=== PATIENT | female | born 1955 | race Caucasian/White ===

== ENCOUNTER 2025-07-25 08:40 | Outpatient (CLI) | payer MEDICARE, BC, SELFPAY ==
--- OUTSIDE RECORDS SUMMARY | 2025-07-04 08:30 | XMS_ITS | Encounter Summary ---
Author Organization [place] [address] Care Team Providers Care Measurement Supervisor Name Role Phone Dejuan Camarillo DO Primary Care Provider Reason for Referral * Echo (Routine) - Pending Review Specialty Diagnoses / Procedures Referred By Senait stauffer Referred To Contact Radiology Diagnoses Lightheaded Shortness of breath Procedures EC ECHOCARDIOGRAM COMPLETE W DOPPLER AND COLOR FLOW MAPPING Francisco Mims MD [address] [place] [id number] Phone: tel: fax: Referral ID Status Reason Start Date Expiration Date V isits Requested Visits Authorized [id number] Pending Review 07/04/2025 07/04/2027 1 1 Reason for Visit * Reason Comments Annual Exam Anxiety Gastroesophageal Reflux Migraine Encounter Details Date Type Department Care Team (Late st Contact Info) Description 07/04/2025 8:30 AM EDT Office Visit [facility] [address] [place] [address] Francisco Mims MD [address] [place] [address] Lightheaded (Primary Dx); CISCO (generalized anxiety disorder); Heartburn; Migraine without aura and with status migrainosus, not intractable; Shortness of breath; Annual physical exam; Insomnia, persistent; Iron deficiency anemia, unspecified iron deficiency anemia type Social History Tobacco Use Types Packs/Day Years Used Date Smoking Tobacco: Never Smokeless Tobacco: Never Alcohol Use Standard Drinks/Week Comments No 0 (1 standard drink = 0.6 oz pur e alcohol) PHQ-2 Answer Date Recorded PHQ-2 Total Score 0 07/04/2025 Sexually Active Control Partners Comments Not Currently Other-see comments Male None Comments No Sex and Gender Information Value Date Recorded Sex Assigned at Not on file Legal Sex Female 2:13 PM EDT Gender Identity Not on file Sexual Orientation Not on file documented as of this encounter Last Filed Vital Signs Vital Sign Reading Time Taken Comments Blood Pressure 138/72 07/04/2025 8:17 AM EDT Pulse - - Temperature 36.6 C (97.8 F) 07/04/2025 8:17 AM EDT Respiratory Rate - - Oxygen Saturation - - Inhaled Oxygen Concentration - - Weight 74.4 kg (164 lb) 07/04/2025 8:17 AM EDT Height 154.9 cm (5' 1 ) 07/04/2025 8:17 AM EDT Body Mass Index 30.99 07/04/2025 8:17 AM EDT documented in this encounter Functional Status * Cognitive and Functional Status Question Answer Date of Assessment Author Is the person deaf or does he/she have serious difficulty hearing? No 07/04/2025 8:13 AM EDT Marilin Hernandez CCMA Is the person blind or does he/she have serious difficulty seeing even when wearing glasses? No 07/04/2025 8:13 AM EDT Marilin Hernandez CCMA Does this person have seriou s difficulty walking or climbing stairs? No 07/04/2025 8:13 AM EDT Marilin Hernandez CCMA Does this person have difficulty dressing or bathing? No 07/04/2025 8:13 AM EDT Marilin Hernandez CCMA * Is the person deaf or does he/she have serious difficulty hearing? Answer Date of Assessment Author No 07/04/2025 8:13 AM CLEOPATRAT Marilin Hernandez CCMA * Is the person blind or does he/she have serious difficulty seeing even when wearing glasses? Answer Date of Assessment Author No 07/04/2025 8:13 AM Marilin Chaudhari CCMA * Does this person have serious difficulty walking or climbing stairs? Answer Date of Assessment Author No 07/04/2025 8:13 AM Marilin Chaudhari CCMA * Does this person have difficulty dressing or bathing? Answer Date of Assessment Author No 07/04/2025 8:13 AM Marilin Chaudhari CCMA * Because of a physical, mental or emotional condition, does this person have difficulty doing errands alone such as visiting a doctor's office or shopping? Answer Date of Assessment Author No 07/04/2025 8:13 AM Marilin Chaudhari CCMA * PHQ-9 Total Score Answer Date of Assessment Author 0 07/04/2025 8:13 AM Marilin Chaudhari CCMA * Question Answer Date of Assessment Author Little interest or pleasure in doing things 0 07/04/2025 8:13 AM Marilin Chaudhari CCMA Feeling down, depressed, or hopeless 0 07/04/2025 8:13 AM Marilin Chaudhari CCMA PHQ-2 Total Score 0 07/04/2025 8:13 AM Marilin Chaudhari CCMA * PHQ-2 Total Score Answer Date of Assessment Author 0 07/04/2025 8:13 AM Marilin Chaudhari CCMA * Question Answer Date of Assessment Author Feeling Nervous, Anxious, or on Edge 0 07/04/2025 8:13 AM Marilin Chaudhari CCMA Not Being Able to Stop or Control Worrying 0 07/04/2025 8:13 AM Marilin Chaudhari CCMA Worrying too Much About Different Things 0 07/04/2025 8:13 AM Marilin Chaudhari CCMA Trouble Relaxing 0 07/04/2025 8:13 AM Marilin Lantigua CCMA Being so Restless That it is Hard to Sit Still 0 07/04/2025 8:13 AM Marilin Chaudhari CCMA Becoming Easily Annoyed or Irritable 0 07/04/2025 8:13 AM Marilin Chaudhari CCMA Feeling Afraid as if Something Awful Might Happen 0 07/04/2025 8:13 AM Marilin Chaudhari CCMA CISCO-7 Total Score 0 07/04/2025 8:13 AM Marilin Chaudhari CCMA documented as of this encounter Mental Status * Cognitive and Functional Status Question Answer Entry Date Author Because of a physical, menta l or emotional condition, does this person have difficulty doing errands alone such as visiting a doctor's office or shopping? No 07/04/2025 8:13 AM Marilin Chaudhari CCMA Because of a physical, menta l or emotional condition, does this person have serious difficulty concentrating, remembering or making decisions? No 07/04/2025 8:13 AM Marilin Chaudhari CCMA * Because of a physical, mental or emotional condition, does this person have serious difficulty concentrating, remembering or making decisions? Answer Entry Date Author No 07/04/2025 8:13 AM Marilin Chaudhari CCMA documented in this encounter Ordered Prescriptions Prescription Sig Dispense Quantity Refills Last Filled Start Date End Date traZODone (DESYREL) 50 mg Oral TabletIndications: Insomnia, persistent Take 1 Tablet by mouth nightly. 30 Tablet 2 07/04/2025 topiramate (TOPAMAX) 100 mg Oral TabletIndications: Migraine without aura and with status migrainosus, not intractable Take 1 Tablet by mouth nightly. 90 Tablet 3 07/04/2025 omeprazole (PRILOSEC) 20 mg Oral Capsule, Delayed Release(E.C.)Indic ations:Heartburn Take 1 Capsule by mouth daily. 90 Capsule 3 07/04/2025 escitalopram oxalate (LEXAPRO) 20 mg Oral TabletIndications: CISCO (generalized anxiety disorder) Take 1 Tablet by mouth daily. 90 Tablet 3 07/04/2025 documented in this encounter Progress Notes * Francisco Mims MD - 07/04/2025 8:30 AM EDTAssociated Problem(s): CISCO (generalized anxiety disorder) Orders: escitalopram oxalate (LEXAPRO) 20 mg Oral Tablet; Take 1 Tablet by mouth daily. * Francisco Mims MD - 07/04/2025 8:30 AM EDTAssociated Problem(s): Migraine without aura and with status migrainosus, not intractable Orders: topiramate (TOPAMAX) 100 mg Oral Tablet; Take 1 Tablet by mouth nightly. * Francisco Mims MD - 07/04/2025 8:30 AM EDT Vitals: 07/04/25 0817 BP: (!) 138/72 Temp: 97.8 ??F (36.6 ??C) Weight: 164 lb (74.4 kg) Height: 5' 1 (1.549 m) Body mass index is 30.99 kg/m??. SUBJECTIVE: Chief Complaint Patient presents with Annual Exam Anxiety Gastroesophageal Reflux Migraine HPI: Medicare Wellness Assessment: Subsequent Annual Medicare Wellness Assessment. Risk Assessments: Fall Risk Assessment Has the patient had any fall with injury in the past year?: (Patient-Rptd) No Has the patient had 2 or more falls in the past year?: (!) (Patient-Rptd) Yes Is the patient able to sit without assistance?: (Patient-Rptd) Yes Is the patient able to get up without assistance?: (Patient-Rptd) Yes Does the patient have a difficult time ambulating when first getting up?: (Patient-Rptd) No Does the patient have rugs or runners in the home?: (Patient-Rptd) No Does the patient have grab bars in the bathroom?: (!) (Patient-Rptd) No Does the patient have stairs inside or outside of the home?: (!) (Patient-Rptd) Yes Does the patient have handrails for all inside or outside stairs?: (Patient- Rptd) Yes Functional Status Assessment Functional Level: (Patient-Rptd) self care Functional Mobility Assessment: (Patient-Rptd) independent w/o assist device Assessment of transportation needs: (Patient-Rptd) still drives most of the time Functional Activities of Daily Living Limitations: (Patient-Rptd) No issues Bladder: Do you have issues with your bladder, such as urgency or leaking urine?: (Patient-Rptd) Moderate issues Does the patient report issues or concerns regarding hearing?: (Patient-Rptd) No Does the patient wear a seatbelt whenever in a moving vehicle?: (Patient-Rptd) Yes Activities of Daily Living Assistive Device Assessment Assistive Devices: None Home BIPAP/CPAP Frequency: (Patient-Rptd) HS (at night) Home BIPAP/CPAP Supplier: (Patient-Rptd) Edgar gunderson Osteoporosis Screening Assessment Has the patient had a DEXA (Bone Density) scan in the past 2 years?: (Patient- Rptd) Yes Results for orders placed during the hospital encounter of 08/22/21 DX BONE DENSITY AXIAL SKELETON Narrative Indication: The patient is a post-menopausal female under age 65 with clinical risk factors for an osteoporotic fracture that requires a bone density assessment. Study was performed on [employer] 5. Bone Density: Region BMD T-score Z-score AP Spine (L1, L2, L3) 0.901 -1.1 0.6 Femoral Neck (Right) 0.659 -1.7 -0.2 Total Hip (Right) 0.847 -0.8 0.4 World Health Organization criteria for BMD interpretation classify patients as: Normal (T-score at or above -1.0), Low Bone Density (T-score between -1.0 and -2.5), or Osteoporotic (T-score at or below -2.5). T Scores are reported in Postmenopausal women and in men age 50 and older. Z-scores are reported in females prior to menopause and in males younger than age 50. 10-year Fracture Risk(1): Major Osteoporotic Fracture 16% Hip Fracture 1.9% Reported Risk Factors: [place] (), Neck BMD=0.659, BMI=27.7, previous fracture, secondary osteoporosis (1) FRAX(R) Version 3.08. Fracture probability calculated for an untreated patient. Fracture probability may be lower if the patient has received treatment. Previous Exams: Region Date Age BMD T-score BMD Change AP Spine(L1, L2, L3) 08/22/2021 66 0.901 -1.1 -4.0%* 12/24/2018 63 0.938 -0.7 Total Hip(Right) 08/22/2021 66 0.847 -0.8 1.0% 12/24/2018 63 0.839 -0.8 *Denotes significance at 95% confidence level, LSC for AP Spine = 0.032g/cm2, LSC for Total Hip = 0.024 g/cm2, LSC for Distal 1/3 Radius = 0.026 g/cm2, site specific LSC for AP Spine = 0.032 g/cm2, site specific LSC for Total Hip = 0.022 g/cm2 BMD is shown in g/cm2 and BMD Change indicates change vs previous BMD Clinical Information Provided by Patient: Has had a low trauma fracture. Has secondary osteoporosis. Has used or is currently using the following medications: Calcium, Vitamin D, Anticonvulsant Has had or currently has the following medical conditions: Back pain, Hip pain, Depression Patient maximum height was 62. Menopause Age: 52 Patient is postmenopausal Interpretation: Bone mineral density is in the low bone density range. A minimum of two years may be required between bone density studies due to inherent testing precision limitations. Intervals between BMD testing should be determined according to each patient's clinical status: typically one year after initiation or change of therapy is appropriate, with longer intervals once therapeutic effect is established. The spine bone mineral density is significantly decreased from the last exam. The spine portion of the study is limited by discordant vertebra. Following ISCD guidelines vertebra with more than 1.0 T-score difference between the vertebra and the adjacent vertebra have been deleted. The right hip bone mineral density is not significantly changed since the last exam. Patient's FRAX score indicates that the patient is at no increased risk for a fragility fracture in the next 10 years. Patient's FRAX score is included in the body of this report. Reported by: Thania Rose PA-C, [facility] on 08/23/2021 8:50:00 AM. Abnormal Pains Assessment Excluding what you would consider normal aches and pains for your age and medical condition, do youhave any unusual or worrisome pains?: (!) (Patient- Rptd) Yes Opiate Screening Are you currently on opiate or narcotic medications?: (Patient-Rptd) No PHQ Depression Screening Results Little interest or pleasure in doing things: 0 Feeling down, depressed, or hopeless: 0 PHQ-2 Total Score: 0 PHQ-9 Total Score: 0 Advanced Directive Evaluation Does the patient have an Advance Directive?: (!) (Patient-Rptd) No Advance Care Planning Guide Given?: Yes (For Dementia Screening below can use either AD-8 or Mini Cog. Doesn't require both.) AD-8 Dementia Screening tool results Problems with judgement: (Patient-Rptd) 0 Less interest in hobbies/activities: (Patient-Rptd) 0 Repeats the same things over and over: (Patient-Rptd) 0 Trouble learning how to use a tool, appliance or gadget: (Patient-Rptd) 0 Forgets correct month or year: (Patient-Rptd) 0 Trouble handling complicated financial affairs: (Patient-Rptd) 0 Trouble remembering appointments: (Patient-Rptd) 0 Daily problems with thinking and/or memory: (Patient-Rptd) 0 Total AD8 score:: (Patient-Rptd) 0 Mini Cog Dementia Screening tool results Welcome to Medicare Vision Screening Eye Exam : Not applicable/required for Subsequent AWV, only required for Welcome to Medicare Visit Patient Instructions AWV findings and Plan of Care: Recommendations as part of the Personal Plan of Care based on risk screening assessments are: Fall Risk Assessment: Fall Risk Assessment: negative - re-assess in 1 year Functional Status/Social Determinates of Health: stable, no issues, re-assess in 1 year Depression Screening: negative - re-assess in 1 year Dementia Screening: negative - recommend re-assess in 1 year Vaccinations: up to date Exercise/Activity: recommended continuing current Recommended follow up annually for Medicare Annual Wellness Visit. Good preventative health care is important in reducing morbidity and mortality. I recommend exercise regularly as tolerated focusing on strength and balance. I recommend a balanced diet focusing on fruits, veggies, and lean meats. I recommend avoiding having rugs, runners, or other loose trip hazards in the home as these increase fall risk. I recommend installing grab bars in the bathrooms close to toilets, in tubs, and in showers as these are common areas for falls when transitioning from wet surfaces to dry surfaces, or visa versa. This is also an area of the home that is high risk for falls at night. I encourage having an Advanced Directives. This is something we recommend you have on file at home,as well as something that we should have on file in our records. If we don't have a copy of your current Advanced Directive, please bring a copy to your next visit. If you have a power of [facility], we should also have a copy on file. I encourage candid discussion with your family on your wishes in the event that you are incapacitated and unable to participate in direct medical decision making. It is important to stay up to date on recommended vaccinations, please see the health maintenance topics due below and if we have not completed one of those topics today, please consider completing as part of your wellness plan this year. Below are other health maintenance topics that are recommended to be closed at your earliest opportunity. You may notice that some of these were addressed in the office today and will show as resolved in your [employer] account soon. Health Maintenance Due Topic Date Due Hepatitis C Screening Never done Pneumococcal Vaccine 50+ (1 of - PCV) Never done COVID-19 Vaccine (2023- season) 2024 Wellness Exam Medicare 01/13/2025 As part of today's visit the components of the Medicare wellness assessment were completed. These components included reviewing the information available in the risk screening questionnaire that was administered by ancillary staff either today or prior to today's visit (pre-visit planning) and recorded in the Medicare Wellness Assessment Flowsheet in the EMR. I have reviewed the data in regards to fall risk, activities of daily living/functional status, depression screening, dementia screening,and outstanding Health Maintenance topics and edited where necessary. The staff has reviewed and updated the past medical history, social history, family history, allergies, medications, and care team information during the standard rooming process. I have also reviewed this data as part of today'svisit. Below are the findings, recommendations, and Personal Plan of Care. The patient received a copy of their Personal Plan of Care including health maintenance topics thatare recommended to be completed and this can be noted in the after visit summary. The AVS is provided to the patient digitally through their MyChart account or with a paper copy if the patient doesn't have an active MyChart Account. A copy of today's progress note with recommendations below is alsoavailable electronically for patients with an active [facility] account per the Federal Cures Act. TheAVS also contains additional patient education if appropriate on topics common to wellness and their plan of care. History Reviewed: No results found. No results found for this visit on 07/04/25. Patient Active Problem List Diagnosis CISCO (generalized anxiety disorder) Arthritis Snoring ARELI (obstructive sleep apnea) Poor sleep hygiene Restless legs syndrome (RLS) Osteopenia Mixed incontinence urge and stress Migraine without aura and with status migrainosus, not intractable Stress incontinence Iron deficiency anemia Past Medical History: Diagnosis Date Anxiety Arthritis Depression Difficulty sleeping awakens alot at night. GERD (gastroesophageal reflux disease) Headache migraines. Motion sickness Poor sleep hygiene 01/11/2019 Post-operative nausea and vomiting Sleep apnea Bipap Snoring Ulcer stomach ulces in her early 20;s. Urinary incontinence Urinary tract infection 11/28/17 last UTI 1-2 years ago. Past Surgical History: Procedure Laterality Date BLADDER SURGERY surgery for incontinence-states something was put around bladder as an Outpatient but it wasn't a sling or mesh. CARPAL TUNNEL RELEASE Right ENDOMETRIAL ABLATION HAND SURGERY Bilateral trigger thumb. KNEE ARTHROSCOPY Left 03/19/2024 LEFT KNEE ARTHROSCOPY DEBRIDEMENT, MEDIAL MENISCECTOMY; Surgeon: Mazin Roblero MD; Location: [facility]; Service: Orthopedics KNEE ARTHROSCOPY Left 03/19/2024 Surgeon: Mazin Roblero MD; Location: [facility]; Service: Orthopedics TONSILLECTOMY and adenoidectomy. No Known Allergies Current Outpatient Medications on File Prior to Visit Medication Sig Dispense Refill MAGNESIUM ORAL Take by mouth daily. No current facility-administered medications on file prior to visit. Social History Socioeconomic History Marital status: Spouse name: None Number of children: None Years of education: None Highest education level: None Tobacco Use Smoking status: Never Smokeless tobacco: Never Vaping Use Vaping status: Never Used Substance and Sexual Activity Alcohol use: No Drug use: Never Sexual activity: Not Currently Partners: Male control/protection: Other-see comments Comment: None Social Drivers of Health Received from [facility] Family and Community Support Received from [facility] Abuse Screen Received from [facility] Housing Stability Family History Problem Relation Age of Onset Cancer Mother lung cancer. Other Father Arthritis , Arthritis Father Anesth Problems Neg Hx Immunization History Administered Date(s) Administered Influenza Vaccine Quadrivalent 10/13/2018, 09/06/2019 Influenza Vaccine, Unspecified Formulation 09/10/2016 Influenza Virus Vaccine Quadrivalant, Flublok 09/15/2020 Moderna SARS-CoV-2 Booster Vaccine 18+ Yrs (Light Blue Border) 10/22/2021 Moderna SARS-CoV-2 Vaccine 12+ Yrs (Light blue border) 02/21/2021, 03/26/2021 Tdap 03/01/2011, 10/23/2022 Zoster 06/09/2017 Zoster Recombinant 10/23/2022, 02/07/2023 Health Maintenance Topic Date Due Hepatitis C Screening Never done Pneumococcal Vaccine 50+ (1 of 1 - PCV) Never done COVID-19 Vaccine (4 - season) 2024 Wellness Exam Medicare 01/13/2025 Influenza Vaccine (1) 07/25/2025 Breast Cancer Screening 05/17/2027 DTaP/TDaP/Td (3 - Td or Tdap) 10/23/2032 Colon Cancer Screening 11/03/2034 Bone Density Screening Completed Zoster Completed Meningococcal B Vaccine Aged Out Hepatitis B Vaccine Aged Out Patient Care Team: Dejuan Camarillo DO as PCP - General (Family Medicine) Additional issues addressed today: Anxiety: stable GERD: Following up for GERD. Requires medication for symptom control daily. Feels that symptoms areadequately controlled with current treatment. She does modify diet to avoid symptoms. Lightheaded this summer, sweating, weakness. Not excessive exertion. 3 episodes lately, two outside, one inside. Shortness of breath at times. A few months of difficulty falling asleep, on BiPap. More stress at night. Review of Systems Constitutional: Negative for fever. Eyes: Negative for visual disturbance. Respiratory: Negative for cough. Cardiovascular: Negative for chest pain. Gastrointestinal: Negative for abdominal pain, constipation and diarrhea. Genitourinary: Negative for difficulty urinating. Musculoskeletal: Negative for joint swelling. Skin: Negative for rash. Neurological: Positive for light-headedness. Negative for dizziness and headaches. OBJECTIVE: Physical Exam Vitals reviewed. Constitutional: General: She is not in acute distress. Appearance: Normal appearance. She is well-developed. She is not ill-appearing. HENT: Head: Normocephalic and atraumatic. Right Ear: Tympanic membrane is not erythematous or bulging. Left Ear: Tympanic membrane is not erythematous or bulging. Eyes: General: Right eye: No discharge. Left eye: No discharge. Conjunctiva/sclera: Conjunctivae normal. Cardiovascular: Rate and Rhythm: Normal rate and regular rhythm. Heart sounds: Normal heart sounds. Pulmonary: Effort: Pulmonary effort is normal. Breath sounds: Normal breath sounds. Abdominal: Palpations: Abdomen is soft. Musculoskeletal: General: Normal range of motion. Skin: General: Skin is warm. Findings: No rash. Neurological: Mental Status: She is alert. Psychiatric: Mood and Affect: Mood normal. Thought Content: Thought content normal. Assessment & Plan CISCO (generalized anxiety disorder) Orders: escitalopram oxalate (LEXAPRO) 20 mg Oral Tablet; Take 1 Tablet by mouth daily. Heartburn Orders: omeprazole (PRILOSEC) 20 mg Oral Capsule, Delayed Release(E.C.); Take 1 Capsule by mouth daily. Migraine without aura and with status migrainosus, not intractable Orders: topiramate (TOPAMAX) 100 mg Oral Tablet; Take 1 Tablet by mouth nightly. Lightheaded Orders: CBC WITH DIFF; Future COMPREHENSIVE METABOLIC PANEL; Future EC ECHOCARDIOGRAM COMPLETE W DOPPLER AND COLOR FLOW MAPPING; Future Shortness of breath Orders: EC ECHOCARDIOGRAM COMPLETE W DOPPLER AND COLOR FLOW MAPPING; Future Annual physical exam Orders: CBC WITH DIFF; Future COMPREHENSIVE METABOLIC PANEL; Future LIPID SCREEN; Future TSH REFLEX TO FT4; Future Insomnia, persistent Orders: traZODone (DESYREL) 50 mg Oral Tablet; Take 1 Tablet by mouth nightly. documented in this encounter Plan of Treatment Upcoming Encounters Date Type Department Care Team (Late st Contact Info) Description 12/05/2025 9:00 AM EST Office [place] [facility] [address] [address] Nataliia Yung, CALLISTHENICS INSTRUCTOR [address] [place] [address] Scheduled Orders Name Type Priority Associated Diagnoses Order Schedule EC ECHOCARDIOGRAM COMPLETE W DOPPLER AND COLOR FLOW MAPPING Imaging Cardiology Routine Lightheaded Shortness of breath 1 Occurrences starting 07/04/2025 until 07/04/2027 documented as of this encounter Goals Goal Patient Goal Type Associated Problems Recent Progress Patient-Stated? Author Maintain a healthy diet, exercise regularly and maintain an ideal body weight General No [facility] R[facility] documented as of this encounter Procedures Procedure Name Priority Date/Time Associated Diagnosis Comments IRON+TIBC Routine 07/04/2025 9:25 AM EDT Iron deficiency anemia, unspecified iron deficiency anemia type TSH REFLEX TO FT4 Routine 07/04/2025 9:2 5 AM EDT Annual physical exam CBC WITH DIFF Routine 07/04/2025 9:25 AM EDT Lightheaded Annual physical exam T4, FREE (THYROXINE) Routine 07/04/2025 9:25 AM EDT Annual physical exam FERRITIN Routine 07/04/2025 9:25 AM EDT Iron deficiency anemia, unspecified iron deficiency anemia type LIPID SCREEN Routine 07/04/2025 9:25 AM EDT Annual physical exam COMPREHENSIVE METABOLIC PANEL Routine 07/04/2025 9:25 AM EDT Lightheaded Annual physical exam documented in this encounter Results * (ABNORMAL) IRON+TIBC (07/04/2025 9:25 AM EDT) Iron 23(L) 30 - 160 mcg/dL 07/05/2025 11:44 AM EDT [facility], [facility] Trans[facility]in 370(H) 200 - 360 mg/dL 07/05/2025 11:44 AM EDT [facility], [facility] Transferrin Saturation 4(L) 20 - 50 % 07/05/2025 11:44 AM EDT [facility] TIBC 518(H) 250 - 400 mcg/dL 07/05/2025 11:44 AM EDT [facility], [facility] Blood VENOUS BLOOD / Unknown Venipuncture / Unknown 07/04/2025 9:25 AM EDT 07/04/2025 9:25 AM EDT us Francisco Mims MD CHEMISTRY ORDERABLES Fi nal Result [facility] [address] [facility] , [place] [address] * (ABNORMAL) FERRITIN (07/04/2025 9:25 AM EDT) Ferritin 11(L) 30 - 150 ng/mL 07/05/2025 11:44 AM EDT [facility] Comment:The lower threshold of 30 is not statistically defined, nor internally validated. The threshold has been updated to more closely reflect a physiologic basis. Philomena Eisenberg et al. Physiologically based serum ferritin thresholds for iron deficiency in children and non- women: a [place] National Health and Nutrition Examination Surveys (NHANES) serial cross-sectional study. Lancet Haematol 202;8:e572-82. Blood VENOUS BLOOD / Unknown Venipuncture / Unknown 07/04/2025 9:25 AM EDT 07/04/2025 9:25 AM EDT Narrative [facility] - 07/05/2025 11:44 AM EDT Ingestion of yaya doses of biotin (>5 mg/day) taken within 8 hours of drawing blood sample can interfere with this immunoassay test. Francisco Mims MD CHEMISTRY ORDERABLES Fi nal Result Performing Organization Address [facility] de Phone Number [facility] [employer] [address] [place] [address] , [address] [place] [id number] * T4, FREE (THYROXINE) (07/04/2025 9:25 AM EDT) [facility] Free T4 1.02 0.80 - 1.80 ng/dL 07/04/2025 4:24 PM EDT [facility] Blood VENOUS BLOOD / Unknown Venipuncture / Unknown 07/04/2025 9:25 AM EDT 07/04/2025 9:25 AM EDT Narrative [facility] - 07/04/2025 4:24 PM EDT Ingestion of yaya doses of biotin (>5 mg/day) taken within 8 hours of drawing blood sample can interfere with this immunoassay test. Francisco Mims MD CHEMISTRY ORDERABLES Fi nal Result Performing Organization Address [facility] Co de Phone Number [facility] [employer] [address] , [place] [address] * (ABNORMAL) TSH REFLEX TO FT4 (07/04/2025 9:25 AM EDT) TSH Reflex 4.290(H) 0.270 - 4.200 mcIU/mL 07/04/2025 3:44 PM EDT [facility] Blood VENOUS BLOOD / Unknown Venipuncture / Unknown 07/04/2025 9:25 AM EDT 07/04/2025 9:25 AM EDT Narrative [facility] - 07/04/2025 3:44 PM EDT Ingestion of yaya doses of biotin (>5 mg/day) taken within 8 hours of drawing blood sample can interfere with this immunoassay test. us Francisco Mims MD CHEMISTRY ORDERABLES nal Result [facility] [address] [facility] , [place] [address] * (ABNORMAL) LIPID SCREEN (07/04/2025 9:25 AM EDT) Cholesterol 210(H) <200 mg/dL 07/04/2025 3:44 PM EDT [facility] Comment: < 200 Desirable 200 - 239 Borderline High >= 240 High Triglyceride 135 <150 mg/dL 07/04/2025 3:44 PM EDT [facility] Comment: < 150 Normal 150 - 199 Borderline High 200 - 499 High >= 500 Very High HDL 41 >=40 mg/dL 07/04/2025 3:44 PM EDT [facility] Comment: > 60 Optimal 40 - 60 Acceptable < 40 Low LDL Calculated 145(H) <100 mg/dL 07/04/2025 3:44 PM EDT [facility] Comment: < 100 Optimal 100 - 129 Near or above optimal 130 - 159 Borderline High 160 - 189 High >= 190 Very High The National Institutes of Health (NIH) equation is used for all lipid panels that report calculated LDL (LDL-C). Non-HDL-C Calculated 169(H) <=129 mg/dL 07/04/2025 3:44 PM EDT [facility] Comment: <130 Desirable 130-159 Above Desirable 160-189 Borderline High 190-219 High >= 220 Very High Fasting Specimen? Unknown None 025 3:44 PM EDT [facility] Blood VENOUS BLOOD / Unknown Venipuncture / Unknown 07/04/2025 9:25 AM EDT 07/04/2025 9:25 AM EDT Francisco Mims MD CHEMISTRY ORDERABLES Fi nal Result [facility] [address] [facility] , [place] [address] * (ABNORMAL) COMPREHENSIVE METABOLIC PANEL (07/04/2025 9:25 AM EDT) Sodium 143 136 - 145 mmol/L 07/04/2025 3:44 PM EDT [facility] Potassium 5.2(H) 3.5 - 5.0 mmol/L 07/04/2025 3:44 PM EDT [facility] Chloride 107 98 - 107 mmol/L 07/04/2025 3:44 PM EDT [facility] Total CO2 23 22 - 29 mmol/L 07/04/2025 3:44 PM EDT [facility] Anion Gap 13 7 - 16 mmol/L 07/04/2025 3:44 PM EDT [facility] Calcium 9.8 8.8 - 10.4 mg/dL 07/04/2025 3:44 PM EDT [facility] Glucose Lvl 105(H) 70 - 99 mg/dL 07/04/2025 3:44 PM EDT [facility] BUN 15 8 - 23 mg/dL 07/04/2025 3:44 PM EDT [facility] Creatinine 0.79 0.51 - 1.30 mg/dL 07/04/2025 3:44 PM EDT [facility] Albumin 4.2 3.2 - 4.6 gm/dL 07/04/2025 3:44 PM EDT [facility] Total Protein 7.0 6.4 - 8.3 gm/dL 07/04/2025 3:44 PM EDT [facility] Bili Total 0.2 0.2 - 1.3 mg/dL 07/04/2025 3:44 PM EDT [facility] ALT 19 <=41 U/L 07/04/2025 3:44 PM EDT [facility] AST 16 <=40 U/L 07/04/2025 3:44 PM EDT [facility] Alk Phos 108 36 - 123 U/L 07/04/2025 3:44 PM EDT [facility] eGFR (CKD-EPIcr 2020) 81 >=60 mL/min/1.7 3 m2 07/04/2025 3:44 PM EDT [facility] Comment:Estimated GFR was ca lculated using the CKD-EPIcr (2020) equation refit without race. The equation is recommended by the National Kidney Foundation - [employer] [employer] Nephrology Task Force. Blood VENOUS BLOOD / Unknown Venipuncture / Unknown 07/04/2025 9:25 AM EDT 07/04/2025 9:25 AM EDT us Francisco Mims MD CHEMISTRY ORDERABLES Fi nal Result [facility] [address] [facility] , [place] [address] * (ABNORMAL) CBC WITH DIFF (07/04/2025 9:25 AM EDT) WBC 6.3 3.7 - 10.3 x10(3)/mc L 07/04/2025 3:47 PM EDT [facility] RBC 5.18 3.90 - 5.20 x10(6)/mc L 07/04/2025 3:47 PM EDT [facility] Hgb 11.8 11.2 - 15.7 g/dL 07/04/2025 3:47 PM EDT [facility] Hct 41.0 34.0 - 45.0 % 07/04/2025 3:47 PM EDT [facility] MCV 79.2(L) 80.0 - 100.0 fL 07/04/2025 3:47 PM EDT [facility] MCH 22.8(L) 26.0 - 34.0 pg 07/04/2025 3:47 PM EDT [facility] MCHC 28.8(L) 30.7 - 35.5 g/dL 07/04/2025 3:47 PM EDT [facility] RDW 14.3 <=14.9 % 07/04/2025 3:47 PM EDT [facility] Platelet 324 155 - 369 x10(3)/mc L 07/04/2025 3:47 PM EDT [facility] MPV 11.0 8.8 - 12.5 fL 07/04/2025 3:47 PM EDT [facility] Neut Percent 50.4 % 07/04/2025 3:47 PM EDT [facility] Comment:Neutrophils equals s egs plus bands Imm Gran% 0.9 % 07/04/2025 3:47 PM EDT [facility] Comment:Automated count of m etamyelocytes, myelocytes and promyelocytes. Lymph Percent 27.8 % 07/04/2025 3:47 PM EDT [facility] Grant Percent 15.2 % 07/04/2025 3:47 PM EDT [facility] Eos Percent 4.1 % 07/04/2025 3:47 PM EDT [facility] Baso Percent 1.6 % 07/04/2025 3:47 PM EDT [facility] Neut # 3.2 1.6 - 6.1 x10(3)/mc L 07/04/2025 3:47 PM EDT [facility] Comment:Neutrophils equals s egs plus bands IMMGRAN# 0.1 0.0 - 0.1 x10(3)/mc L 07/04/2025 3:47 PM EDT [facility] Comment:Automated count of m etamyelocytes, myelocytes and promyelocytes. An absolute IG <0.1 is reported as 0.0. Lymph # 1.8 1.2 - 3.9 x10(3)/mc L 07/04/2025 3:47 PM EDT [facility] Grant # 1.0(H) 0.3 - 0.9 x10(3)/mc L 07/04/2025 3:47 PM EDT [facility] Eos# 0.3 0.0 - 0.5 x10(3)/mc L 07/04/2025 3:47 PM EDT [facility] Baso # 0.1 0.0 - 0.1 x10(3)/mc L 07/04/2025 3:47 PM EDT [facility] Polychrom Slight 07/04/2025 3:47 PM EDT [facility] Hypochrom Slight 07/04/2025 3:47 PM EDT [facility] Ovalocyte Occasional 07/04/2025 3:47 PM EDT [facility] Byron Cell Occasional 07/04/2025 3:47 PM EDT [facility] Blood VENOUS BLOOD / Unknown Venipuncture / Unknown 07/04/2025 9:25 AM EDT 07/04/2025 9:25 AM EDT us Francisco Mims MD HEMATOLOGY ORDERABLES F inal Result [facility], [address] , [place] [address] documented in this encounter Visit Diagnoses Diagnosis Lightheaded- Primary Dizziness and giddiness CISCO (generalized anxiety disorder) Generalized anxiety disorder Heartburn Migraine without aura and with status migrainosus, not intractable Migraine without aura, without mention of intractable migraine with status migrainosus Shortness of breath Annual physical exam Routine general medical examination at a health care facility Insomnia, persistent Persistent disorder of initiating or maintaining sleep Iron deficiency anemia, unspecified iron deficiency anemia type documented in this encounter Discontinued Medications Medication Sig Discontinue Reason Start Date End Da te omeprazole (PRILOSEC) 20 mg Oral Capsule, Delayed Release(E.C.)Indications :Heartburn Take 1 Capsule by mouth daily. Reorder 10/28/2024 07/04/2025 escitalopram oxalate (LEXAPRO) 20 mg Oral TabletIndications:CISCO (generalized anxiety disorder) Take 1 Tablet by mouth daily. Reorder 10/28/2024 07/04/2025 topiramate (TOPAMAX) 100 mg Oral TabletIndications:Migrai ne without aura and with status migrainosus, not intractable Take 1 Tablet by mouth nightly. Reorder 10/28/2024 07/04/2025 documented as of this encounter Additional Health Concerns Assessment Noted Time A fall risk assessment has been complete d for the patient 07/04/2025 8:14 AM EDT documented as of this encounter Care Teams Measurement Supervisor Relationship Specialty Start Date End Date Dejuan Camarillo DO [address] [place] [address] PCP - General Family Medicine 09/01/15 documented as of this encounter
--- OUTSIDE RECORDS SUMMARY | 2025-07-26 10:56 | XMS_ITS | Encounter Summary ---
Author Organization [facility] [place] [address] Care Team Providers Care Medical Affairs Manager Name Role Phone Dejuan Camarillo DO Primary Care Provider [phone] Encounter Details Date Type Department Care Team (Latest Contact Info) Description 07/01/2025 Travel Social History Tobacco Use Types Packs/Day Years Used Date Smoking Tobacco: Never Smokeless Tobacco: Never Alcohol Use Standard Drinks/Week Comments No 0 (1 standard drink = 0.6 oz pur e alcohol) PHQ-2 Answer Date Recorded PHQ-2 Total Score 3 01/13/2024 Sexually Active Control Partners Comments Not Currently Other-see comments Male None Comments No Sex and Gender Information Value Date Recorded Sex Assigned at Not on file Legal Sex Female 2:13 PM EDT Gender Identity Not on file Sexual Orientation Not on file documented as of this encounter Functional Status * Is the person deaf or does he/she have serious difficulty hearing? Answer Date of Assessment Author No 01/13/2024 8:15 AM Argelia Coates RMA * Is the person blind or does he/she have serious difficulty seeing even when wearing glasses? Answer Date of Assessment Author No 01/13/2024 8:15 AM Argelia Coates RMA * Does this person have serious difficulty walking or climbing stairs? Answer Date of Assessment Author No 01/13/2024 8:15 AM Argelia Coates RMA * Does this person have difficulty dressing or bathing? Answer Date of Assessment Author No 01/13/2024 8:15 AM Argelia Coates RMA * Because of a physical, mental or emotional condition, does this person have difficulty doing errands alone such as visiting a doctor's office or shopping? Answer Date of Assessment Author No 01/13/2024 8:15 AM Argelia Coates RMA documented as of this encounter Mental Status * Because of a physical, mental or emotional condition, does this person have serious difficulty concentrating, remembering or making decisions? Answer Entry Date Author No 01/13/2024 8:15 AM Argelia Coates RMA documented in this encounter Plan of Treatment Upcoming Encounters Date Type Department Care Team (Late st Contact Info) Description 12/05/2025 9:00 AM EST Office Visit [facility] Sleep Medicine [address] [phone] Nataliia Yung, MACHINE CLEANER [address] [place] [id number] documented as of this encounter Goals Goal Patient Goal Type Associated Problems Recent Progress Patient-Stated? Author Maintain a healthy diet, exercise regularly and maintain an ideal body weight General No [facility] RMA documented as of this encounter Visit Diagnoses Not on filedocumented in this encounter Additional Health Concerns Assessment Noted Time PHQ-9 Depression Total Score: 11 024 8:17 AM EST A fall risk assessment has been complete d for the patient 01/13/2024 8:15 AM EST PHQ-2 Depression Total Score: 3 01/13/20 24 8:17 AM EST documented as of this encounter Care Teams Medical Affairs Manager Relationship Specialty Start Date End Date Dejuan Camarillo DO [address] [place] [address] PCP - General Family Medicine 09/01/15 documented as of this encounter
--- OUTSIDE RECORDS SUMMARY | 2025-07-26 10:57 | XMS_ITS | Encounter Summary ---
Author Organization [place] [address] Care Team Providers Care Medical Registrar Name Role Phone Dejuan Camarillo DO Primary Care Provider [phone] Encounter Details Date Type Department Care Team (Late st Contact Info) Description 07/06/2025 Orders Only [facility] [address] [place] [phone] Francisco Mims MD [address] [place] [address] Iron deficiency anemia, unspecified iron deficiency anemia type (Primary Dx) Social History Tobacco Use Types Packs/Day Years [...] of Assessment Author No 07/04/2025 8:13 AM EDT Marilin Hernandez CCMA * Is the person blind or does he/she have serious difficulty seeing even when wearing glasses? Answer Date of Assessment Author No 07/04/2025 8:[address] CCMA * Does this person have serious difficulty walking or climbing stairs? Answer Date of Assessment Author No 07/04/2025 8:[address] CCMA * Does this person have difficulty dressing or bathing? Answer Date of Assessment Author No 07/04/2025 8:13 AM EDT Marilin Hernandez CCMA * Because of a physical, mental or emotional condition, does this person have difficulty doing errands alone such as visiting a doctor's office or shopping? Answer Date of Assessment Author No 07/04/2025 8:13 AM EDT Marilin Hernandez CCMA documented as of this encounter Mental Status * Because of a physical, mental or emotional condition, does this person have serious difficulty concentrating, remembering or making decisions? Answer Entry Date Author No 07/04/2025 8:13 AM EDT Marilin Hernandez CCMA documented in this encounter Plan of Treatment Upcoming Encounters Date Type Department Care Team (Late st Contact Info) Description 12/05/2025 9:00 AM EST Office Visit [facility] [place] [facility] [address] [phone] Nataliia Yung, ART PSYCHOTHERAPIST OR THERAPIST [address] [place] [address] Scheduled Orders Name Type Priority Associated Diagnoses Orde r Schedule CBC WITH DIFF Lab Routine Iron deficiency anemia, unspecified iron deficiency anemia type 1 Occurrences starting 07/06/2025 until 07/06/2026 documented as of this encounter Goals Goal Patient Goal Type Associated Problems Recent Progress Patient-Stated? Author Maintain a healthy diet, exercise regularly and maintain an ideal body weight General No [facility], [facility] documented as of this encounter Visit Diagnoses Diagnosis Iron deficiency anemia, unspecified iron deficiency anemia type- Primary documented in this encounter Additional Health Concerns Assessment Noted Time A fall risk assessment has been complete d for the patient 07/04/2025 8:14 AM EDT documented as of this encounter Care Teams Medical Registrar Relationship Specialty Start Date End Date Dejuan Camarillo DO [address] [place] [address] PCP - General Family Medicine 09/01/15 documented as of this encounter
--- OUTSIDE RECORDS SUMMARY | 2025-07-26 10:57 | XMS_ITS | Encounter Summary ---
Author Organization [facility] Address [address] [place] [address] Care Team Providers Care Meat Supervisor Name Role Phone Dejuan Camarillo DO Primary Care Provider Encounter Details Date Type Department Care Team (Late st Contact Info) Description 12/16/2018 Abstract [facility] Unit [address] [place] [address] Max Gomez Social History Tobacco Use Types Packs/Day Years Used Date Smoking Tobacco: Never Assessed Comments Unknown Sex and Gender Information Value Date Recorded Sex Assigned at Not on file Legal Sex Female 2:09 PM EST Gender Identity Not on file Sexual Orientation Not on file documented as of this encounter Last Filed Vital Signs Vital Sign Reading Time Taken Comments Blood Pressure - - Pulse - - Temperature - - Respiratory Rate - - Oxygen Saturation - - Inhaled Oxygen Concentration - - Weight 63.5 kg (140 lb) 12/16/2018 2:16 PM EST Height 154.9 cm (5' 1 ) 12/16/2018 2:16 PM EST Body Mass Index 26.45 12/16/2018 2:16 PM EST documented in this encounter Plan of Treatment Not on file documented as of this encounter Visit Diagnoses Not on filedocumented in this encounter Care Teams Meat Supervisor Relationship Specialty Start Date End Date Dejuan Camarillo DO [address] [place] [address] PCP - General Family Medicine 12/16/18 documented as of this encounter
--- OUTSIDE RECORDS SUMMARY | 2025-07-26 10:57 | XMS_ITS | Clinical Summary ---
Author Organization [facility] Address [address] [place] [place] [address] Phone Care Team Providers Care Supervisor Riveting Name Role Phone Dejuan Camarillo DO Primary Care Provider [phone] Allergies No known active allergies Medications MAGNESIUM ORAL Take by mouth daily. Active escitalopram oxalate (LEXAPRO) 20 mg Oral TabletIndication s:CISCO (generalized anxiety disorder) Take 1 Tablet by mouth daily. 90 Tablet 3 5 Active omeprazole (PRILOSEC) 20 mg Oral Capsule, Delayed Release(E.C.)Ind ications:Heartbu rn Take 1 Capsule by mouth daily. 90 Capsule 3 5 Active topiramate (TOPAMAX) 100 mg Oral TabletIndication s:Migraine without aura and with status migrainosus, not intractable Take 1 Tablet by mouth nightly. 90 Tablet 3 5 Active traZODone (DESYREL) 50 mg Oral TabletIndication s:Insomnia, persistent Take 1 Tablet by mouth nightly. 30 Tablet 2 5 Active omeprazole (PRILOSEC) 20 mg Oral Capsule, Delayed Release(E.C.)Ind ications:Heartbu rn Take 1 Capsule by mouth daily. 90 Capsule 2 4 07/04/20 25 Discontinu ed(Reorder ) escitalopram oxalate (LEXAPRO) 20 mg Oral TabletIndication s:CISCO (generalized anxiety disorder) Take 1 Tablet by mouth daily. 90 Tablet 2 4 07/04/20 25 Discontinu ed(Reorder ) topiramate (TOPAMAX) 100 mg Oral TabletIndication s:Migraine without aura and with status migrainosus, not intractable Take 1 Tablet by mouth nightly. 90 Tablet 2 4 07/04/20 25 Discontinu ed(Reorder ) Active Problems Problem Noted Date Diagnosed Date Iron deficiency anemia 07/29/2023 Stress incontinence 03/24/2023 Osteopenia 10/23/2022 Overview (10/23/2022): started fosamax 09/2022. needs this for 3-5 years. Mixed incontinence urge and stress 10/23/2022 Migraine without aura and wi th status migrainosus, not intractable 10/23/2022 Assessment & Plan (07/04/2025 9:15 AM EDT): Orders: topiramate (TOPAMAX) 100 mg Oral Tablet; Take 1 Tablet by mouth nightly. Assessment & Plan (10/28/2024 2:18 PM EST): Orders: topiramate (TOPAMAX) 100 mg Oral Tablet; Take 1 Tablet by mouth nightly. Restless legs syndrome (RLS) 05/17/2019 Poor sleep hygiene 01/11/2019 Snoring 11/20/2017 Overview (11/20/2017): Added automatically from request for surgery [id number] ARELI (obstructive sleep apnea) 11/20/2017 Overview (11/20/2017): Added automatically from request for surgery [id number] CISCO (generalized anxiety disorder) 03/01/2011 Assessment & Plan (07/04/2025 9:15 AM EDT): Orders: escitalopram oxalate (LEXAPRO) 20 mg Oral Tablet; Take 1 Tablet by mouth daily. Arthritis 03/01/2011 Encounters Date Type Department Care Team Description 07/06/2025 Results Follow-Up [facility] [address] [place] [address] Francisco Mims MD CBC WITH DIFF, COMPREHENSIVE METABOLIC PANEL, LIPID SCREEN, Additional followed-up results: 4 07/06/2025 Orders Only [facility] [address] [place] [address] Francisco Mims MD Iron deficiency anemia, unspecified iron deficiency anemia type (Primary Dx) 07/05/2025 Orders Only [facility] [address] [place] [address] Francisco Mims MD Iron deficiency anemia, unspecified iron deficiency anemia type (Primary Dx) 07/04/2025 8:30 AM EDT Office Visit [facility] [address] [place] [address] Francisco Mims MD Lightheaded (Primary Dx); CISCO (generalized anxiety disorder); Heartburn; Migraine without aura and with status migrainosus, not intractable; Shortness of breath; Annual physical exam; Insomnia, persistent; Iron deficiency anemia, unspecified iron deficiency anemia type 07/01/2025 Travel 05/17/2025 10:55 AM EDT - 05/17/2025 11:59 PM EDT Hospital Encounter [facility] [address] [place] [address] Dejuan Camarillo, Encounter for screening mammogram for malignant neoplasm of breast Discharge Disposition: Home or Self Care from Last 3 Months Immunizations Immunization Administration Dates Next Due Influenza Vaccine Quadrivalent 09/06/2019,2017 Influenza Vaccine, Unspecified Formulation 09/10 Influenza Virus Vaccine Quadrivalant, Flublok Tdap 10/23/2022,03/01/2011 Zoster 06/09/2017 Zoster Recombinant 02/07/2023,10/23/2022 Surgical History Surgery Date Site/Laterality Comments CARPAL TUNNEL RELEASE Right HAND SURGERY Bilateral trigger thumb. ENDOMETRIAL ABLATION BLADDER SURGERY surgery for incontinence-states something was put around bladder as an Outpatient but it wasn't a sling or mesh. TONSILLECTOMY and adenoidectomy. KNEE ARTHROSCOPY 03/19/2024 Knee/Left LEFT KNEE ARTHROSCOPY DEBRIDEMENT, MEDIAL MENISCECTOMY; Surgeon: Mazin Roblero MD; Location: [facility]; Service: Orthopedics KNEE ARTHROSCOPY 03/19/2024 Knee/Left Surgeon: Mazin Roblero MD; Location: [facility]; Service: Orthopedics Medical History Medical History Date Comments Snoring Difficulty sleeping awakens alot at night. Sleep apnea Bipap Arthritis Headache migraines. Ulcer stomach ulces in her early 20;s. Urinary incontinence Urinary tract infection 11/28/17 last UTI 1-2 years ago. Depression Post-operative nausea and vomiting Poor sleep hygiene 01/11/2019 Anxiety GERD (gastroesophageal reflux disease) Motion sickness Family History Medical History Relation Name Comments Arthritis Father Jeison Del Real Other Father Jeison Del Real Arthritis , Cancer Mother Olimpia Del Real lung cancer. Anesth Problems Neg Hx Relation Name Status Comments Father Jeison Del Real Alive Mother Olimpia Del Real Social History Tobacco Use Types Packs/Day Years Used Date Smoking Tobacco: Never Smokeless Tobacco: Never Tobacco Cessation:Counseling Given: Not Answered Alcohol Use Standard Drinks/Week Comments No 0 [...] on file Sexual Orientation Not on file Obstetrics History Para Term AB IAB SAB Ectopic Multiple Livin g Live Births 2 Last Filed Vital Signs Vital Sign Reading Time Taken Comments Blood Pressure 138/72 07/04/2025 8:17 AM EDT Pulse 64 11/03/2024 1:48 PM EST Temperature 36.6 C (97.8 F) 07/04/2025 8:17 AM EDT Respiratory Rate 18 11/03/2024 1:48 PM EST Oxygen Saturation 95% 11/03/2024 1:48 PM EST Inhaled Oxygen Concentration - - Weight 74.4 kg (164 lb) 07/04/2025 8:17 AM EDT Height 154.9 cm (5' 1 ) 07/04/2025 8:17 AM EDT Body Mass Index 30.99 07/04/2025 8:17 AM EDT Plan of Treatment Upcoming Encounters Date Type Department Care Team (Late st Contact Info) Description 12/05/2025 9:00 AM EST Office Visit [facility] [address] [address] Nataliia Yung, FARM OPERATOR [address] [place] [address] Health Maintenance Due Date Last Done Comments Hepatitis C Screening 1975 Cologuard 2002 FIT 2002 Sigmoidoscopy 2002 Virtual Colonography 2002 Pneumococcal Vaccine 50+ (1 of - PCV) 2007 COVID-19 Vaccine ( season) 2024 10/22/2021, 03/26/2021, 02/21/2021 Influenza Vaccine (#1) 2025 , 09/06/2019, 10/13/2018, Additional history exists Wellness Exam Medicare 07/05/2026 07/04/2025 Breast Cancer Screening 05/17/2027 05/17/20, 02/16/2024, 01/28/2023, Additional history exists DTaP/TDaP/Td (3 - Td or Tdap) 10/23/2032 10/23/2022, 03/01/2011 Colon Cancer Screening 11/03/2034 Colonoscopy 11/03/2034 11/03/2024, 1998 Bone Density Screening Completed 08/22/2021, 2018 Zoster Completed 02/07/2023, 09/26, 06/09/2017 Hepatitis B Vaccine Aged Out No longe r eligible based on patient's age to complete this topic Meningococcal B Vaccine Aged Out No l onger eligible based on patient's age to complete this topic Goals Goal Patient Goal Type Associated Problems Recent Progress Patient-Stated? Author Maintain a healthy diet, exercise regularly and maintain an ideal body weight General No [facility], NIC Procedures Procedure Name Priority Date/Time Associated Diagnosis Comments IRON+TIBC Routine 07/04/2025 9:25 AM EDT Iron deficiency anemia, unspecified iron deficiency anemia type FERRITIN Routine 07/04/2025 9:25 AM EDT Iron deficiency anemia, unspecified iron deficiency anemia type T4, FREE (THYROXINE) Routine 07/04/2025 9:25 AM EDT Annual physical exam TSH REFLEX TO FT4 Routine 07/04/2025 9:2 5 AM EDT Annual physical exam LIPID SCREEN Routine 07/04/2025 9:25 AM EDT Annual physical exam COMPREHENSIVE METABOLIC PANEL Routine 07/04/2025 9:25 AM EDT Lightheaded Annual physical exam CBC WITH DIFF Routine 07/04/2025 9:25 AM EDT Lightheaded Annual physical exam MM MAMMO DIGITAL NIKKO SCREEN BILAT Routine 05/17/2025 11:28 AM EDT Encounter for screening mammogram for malignant neoplasm of breast COLONOSCOPY Routine 11/03/2024 1:24 PM EST Screening for colon cancer Family history of colonic polyps DX BONE DENSITY AXIAL SKELETON Routine 08/22/2021 8:37 AM EDT Osteopenia, unspecified location from Last 3 Months or Most Recently Relevant to Health Maintenance Results * (ABNORMAL) IRON+TIBC (07/04/2025 9:25 AM EDT) Iron 23(L) 30 - 160 mcg/dL 07/05/2025 11:44 AM EDT [facility] Transferrin 370(H) 200 - 360 mg/dL 07/05/2025 11:44 AM EDT [facility] Transferrin Saturation 4(L) 20 - 50 % 07/05/2025 11:44 AM EDT [facility] TIBC 518(H) 250 - 400 mcg/dL 07/05/2025 11:44 AM EDT [facility] Blood VENOUS BLOOD / Unknown Venipuncture / Unknown 07/04/2025 9:25 AM EDT 07/04/2025 9:25 AM EDT Francisco Mims MD CHEMISTRY ORDERABLES Fi nal Result Performing Organization Address [facility] de Phone Number [facility], [address] , [place] [address] * (ABNORMAL) TSH REFLEX TO FT4 (07/04/2025 9:25 AM EDT) TSH Reflex 4.290(H) 0.270 - 4.200 mcIU/mL 07/04/2025 3:44 PM EDT [facility], [email or web address] Blood VENOUS BLOOD / Unknown Venipuncture / Unknown 07/04/2025 9:25 AM EDT 07/04/2025 9:25 AM EDT Narrative [facility], [facility] - 07/04/2025 3:44 PM EDT Ingestion of yaya doses of biotin (>5 mg/day) taken within 8 hours of drawing blood sample can interfere with this immunoassay test. Francisco Mims MD CHEMISTRY ORDERABLES Fi nal Result Performing Organization Address [facility] de Phone Number [facility], [address] , [place] [address] * (ABNORMAL) CBC WITH DIFF (07/04/2025 9:25 AM EDT) WBC 6.3 3.7 - 10.3 x10(3)/mc L 07/04/2025 3:47 PM EDT [facility] RBC 5.18 3.90 - 5.20 x10(6)/mc L 07/04/2025 3:47 PM EDT [facility] Hgb 11.8 11.2 - 15.7 g/dL 07/04/2025 3:47 PM EDT [facility] Hct 41.0 34.0 - 45.0 % 07/04/2025 3:47 PM EDT [facility] MCV 79.2(L) 80.0 - 100.0 fL 07/04/2025 3:47 PM EDT [facility] MCH 22.8(L) 26.0 - 34.0 pg 07/04/2025 3:47 PM EDT [facility], [facility] MCHC 28.8(L) 30.7 - 35.5 g/dL 07/04/2025 3:47 PM EDT [facility] RDW 14.3 <=14.9 % 07/04/2025 3:47 PM EDT [facility] Platelet 324 155 - 369 x10(3)/mc L 07/04/2025 3:47 PM EDT [facility] MPV 11.0 8.8 - 12.5 fL 07/04/2025 3:47 PM EDT [facility] Neut Percent 50.4 % 07/04/2025 3:47 PM EDT [facility] Comment:Neutrophils equals s egs plus bands Imm Gran% 0.9 % 07/04/2025 3:47 PM EDT [facility] Comment:Automated count of m etamyelocytes, myelocytes and promyelocytes. Lymph Percent 27.8 % 07/04/2025 3:47 PM EDT [facility] [place] Percent 15.2 % 07/04/2025 3:47 PM EDT [facility] Eos Percent 4.1 % 07/04/2025 3:47 PM EDT [facility] Baso Percent 1.6 % 07/04/2025 3:47 PM EDT [facility] Neut # 3.2 1.6 - 6.1 x10(3)/mc L 07/04/2025 3:47 PM EDT [facility] Comment:Neutrophils equals s egs plus bands IMMGRAN# 0.1 0.0 - 0.1 x10(3)/mc L 07/04/2025 3:47 PM EDT [facility] Comment:Automated count of m etamyelocytes, myelocytes and promyelocytes. An absolute IG <0.1 is reported as 0.0. Lymph # 1.8 1.2 - 3.9 x10(3)/mc L 07/04/2025 3:47 PM EDT [facility] [place] # 1.0(H) 0.3 - 0.9 x10(3)/mc L 07/04/2025 3:47 PM EDT [facility] Eos# 0.3 0.0 - 0.5 x10(3)/mc L 07/04/2025 3:47 PM EDT [facility] Baso # 0.1 0.0 - 0.1 x10(3)/mc L 07/04/2025 3:47 PM EDT [facility] Polychrom Slight 07/04/2025 3:47 PM EDT [facility] Hypochrom Slight 07/04/2025 3:47 PM EDT [facility] Ovalocyte Occasional 07/04/2025 3:47 PM EDT [facility] [place] Cell Occasional 07/04/2025 3:47 PM EDT [facility] Blood VENOUS BLOOD / Unknown Venipuncture / Unknown 07/04/2025 9:25 AM EDT 07/04/2025 9:25 AM EDT Francisco Mims MD HEMATOLOGY ORDERABLES F inal Result [facility], [address] , [place] [address] * T4, FREE (THYROXINE) (07/04/2025 9:25 AM EDT) [facility] Free T4 1.02 0.80 - 1.80 ng/dL 07/04/2025 4:24 PM EDT [facility], [facility] Blood VENOUS BLOOD / Unknown Venipuncture / Unknown 07/04/2025 9:25 AM EDT 07/04/2025 9:25 AM EDT Narrative [facility], [facility] - 07/04/2025 4:24 PM EDT Ingestion of yaya doses of biotin (>5 mg/day) taken within 8 hours of drawing blood sample can interfere with this immunoassay test. Francisco Mims MD CHEMISTRY ORDERABLES Fi nal Result Performing Organization Address City/[facility]/ZIP Co de Phone Number [facility], [address] , [place] [address] * (ABNORMAL) FERRITIN (07/04/2025 9:25 AM EDT) Ferritin 11(L) 30 - 150 ng/mL 07/05/2025 11:44 AM EDT [facility] Comment:The lower threshold of 30 is not statistically defined, nor internally validated. The threshold has been updated to more closely reflect a physiologic basis. Philomena Z, et al. Physiologically based serum ferritin thresholds for iron deficiency in children and non- women: a [place] National Health and Nutrition Examination Surveys (NHANES) serial cross-sectional study. Lancet Haematol 2021;8:e572-82. Blood VENOUS BLOOD / Unknown Venipuncture / Unknown 07/04/2025 9:25 AM EDT 07/04/2025 9:25 AM EDT Narrative [facility] [address] [facility] - 07/05/2025 11:44 AM EDT Ingestion of yaya doses of biotin (>5 mg/day) taken within 8 hours of drawing blood sample can interfere with this immunoassay test. Francisco Mims MD CHEMISTRY ORDERABLES nal Result [facility] [address] [facility] , [place] [address] * (ABNORMAL) LIPID SCREEN (07/04/2025 9:25 AM EDT) Cholesterol 210(H) <200 mg/dL 07/04/2025 3:44 PM EDT [facility] Comment: < 200 Desirable 200 - 239 Borderline High >= 240 High Triglyceride 135 <150 mg/dL 07/04/2025 3:44 PM EDT [facility] Comment: < 150 Normal 150 - 199 Borderline High 200 - 499 High >= 500 Very High HDL 41 >=40 mg/dL 07/04/2025 3:44 PM EDT [facility] Comment: > 60 Optimal 40 - 60 Acceptable < 40 Low LDL Calculated 145(H) <100 mg/dL 07/04/2025 3:44 PM EDT [facility] Comment: < 100 Optimal 100 - 129 Near or above optimal 130 - 159 Borderline High 160 - 189 High >= 190 Very High The National Institutes of Health (NIH) equation is used for all lipid panels that report calculated LDL (LDL-C). Non-HDL-C Calculated 169(H) <=129 mg/dL 07/04/2025 3:44 PM EDT [facility] Comment: <130 Desirable 130-159 Above Desirable 160-189 Borderline High 190-219 High >= 220 Very High Fasting Specimen? Unknown None 025 3:44 PM EDT [facility] Blood VENOUS BLOOD / Unknown Venipuncture / Unknown 07/04/2025 9:25 AM EDT 07/04/2025 9:25 AM EDT us Francisco Mims MD CHEMISTRY ORDERABLES Fi nal Result [facility] [address] [facility] , [place] [address] * (ABNORMAL) COMPREHENSIVE METABOLIC PANEL (07/04/2025 9:25 [...] mg/dL 07/04/2025 3:44 PM EDT [facility], [facility] Albumin 4.2 3.2 - 4.6 gm/dL 07/04/2025 3:44 PM EDT [facility], [facility] Total Protein 7.0 6.4 - 8.3 gm/dL 07/04/2025 3:44 PM EDT [facility] Bili Total 0.2 0.2 - 1.3 mg/dL 07/04/2025 3:44 PM EDT [facility], [facility] ALT 19 <=41 U/L 07/04/2025 3:44 PM EDT [facility], [facility] AST 16 <=40 U/L 07/04/2025 3:44 PM EDT [facility], [facility] Alk Phos 108 36 - 123 U/L 07/04/2025 3:44 PM EDT [facility], [facility] eGFR (CKD-EPIcr 2020) 81 >=60 mL/min/1.7 3 m2 07/04/2025 3:44 PM EDT [facility], [facility] Comment:Estimated GFR was ca lculated using the CKD-EPIcr (2020) equation refit without race. The equation is recommended by the National Kidney Foundation - [place] [employer] Neph[employer] Task Force. Blood VENOUS BLOOD / Unknown Venipuncture / Unknown 07/04/2025 9:25 AM EDT 07/04/2025 9:25 AM EDT us Francisco Mims MD CHEMISTRY ORDERABLES Fi nal Result [facility], [address] , [address] [place] [id number] * MM MAMMO DIGITAL NIKKO SCREEN BILAT (05/17/2025 11:28 AM EDT) Anatomical Region Laterality Modality Breast Bilateral Mammography 05/17/2025 11:2 8 AM EDT Impressions 05/17/2025 12:43 PM EDT Negative ([id number]-[id number]-8) RECOMMENDATION: Routine Screening Mammogram in 1 Year Bilateral . . COMMENTS: DISCLAIMER *The patient was notified by MyChart or mail of the results for this examination. *The patient's information was entered into a reminder system with a target due date for the next breast imaging, in accordance with the [place] [employer] and the Society of Breast Imaging recommendations. *Breast Imaging has a false negative rate of 15%. *Any patient with a palpable abnormality, unexplained by breast imaging, should be managed on a clinical basis by the attending physician. Narrative 05/17/2025 12:43 PM EDT EXAM: MM MAMMO DIGITAL NIKKO SCREEN BILAT EXAM DATE: 05/17/2025 11:28 AM INDICATION: Z12.31-Encounter for screening mammogram for malignant neoplasm of [id number]-[id number]-CM COMPARISON STUDIES: Compared with prior studies the most recent being 02/16/2024 MM MAMMO DIGITAL NIKKO SCREEN BILAT at [facility] 01/28/2023 MM MAMMO DIGITAL NIKKO SCREEN BILAT at [facility] 01/28/2022 MM MAMMO DIGITAL NIKKO SCREEN BILAT at [facility] TISSUE DENSITY: There are scattered areas of fibroglandular density. FINDINGS: No mammographic evidence of malignancy. Procedure Note Patel Ling MD - 05/17/2025 EXAM: MM MAMMO DIGITAL NIKKO SCREEN BILAT EXAM DATE: 05/17/2025 11:28 AM INDICATION: Z12.31-Encounter for screening mammogram for malignantneoplasm of nouljj-[id number]-CM COMPARISON STUDIES: Compared with prior studies the most recent being 02/16/2024 MM MAMMO DIGITAL NIKKO SCREEN BILAT at [facility] 01/28/2023 MM MAMMO DIGITAL NIKKO SCREEN BILAT at [facility] 01/28/2022 MM MAMMO DIGITAL NIKKO SCREEN BILAT at [facility] TISSUE DENSITY: There are scattered areas of fibroglandular density. FINDINGS: No mammographic evidence of malignancy. IMPRESSION: Negative ([id number]) RECOMMENDATION: Routine Screening Mammogram in 1 Year Bilateral . . COMMENTS: DISCLAIMER *The patient was notified by MyChart or mail of the results for this examination. *The patient's information was entered into a reminder system with atarget due date for the next breast imaging, in accordance with the [place] [employer] and the Society of Breast Imaging recommendations. *Breast Imaging has a false negative rate of 15%. *Any patient with a palpable abnormality, unexplained by breast imaging,should be managed on a clinical basis by the attending physician. us Dejuan Camarillo DO IMG MAMMOGRAPHY ORDERABLES Kely bess Result * COLONOSCOPY (11/03/2024 1:24 PM EST) Anatomical Region Laterality Modality Endoscopy Narrative 11/03/2024 1:26 PM EST Table formatting from the original result was not included. Findings One sessile and adenomatous-appearing polyp measuring 5-9 mm in the descending colon; performed cold snare with complete en bloc removal and retrieved specimen Few small, scattered diverticula of mild severity in the sigmoid colon Recommendation Await pathology results - Repeat colonoscopy likely in 7 years Pre-Procedure Diagnosis / Indication Family history of colonic polyps, Screening for colon cancer Post-Procedure Diagnosis Family history of colonic polyps, Screening for colon cancer Staff Staff Role Cheo Emerson MD Performing Provider LEÓN Cutler CRNA, RN Street [employer] Medications See Anesthesia Record. Preprocedure A history and physical has been performed, and patient medication allergies have been reviewed. The patient's tolerance of previous anesthesia has been reviewed. The risks and benefits of the procedure and the sedation options and risks were discussed with the patient. All questions were answered and informed consent obtained. ASA 2 - Patient with mild systemic disease Details of the Procedure The patient underwent monitored anesthesia care, which was administered by an anesthesia professional. The patient's blood pressure, heart rate, level of consciousness, oxygen, respirations, ECG and ETCO2 were monitored throughout the procedure. A digital rectal exam was performed. The scope was introduced through the anus and advanced to the cecum. Retroflexion was performed in the rectum. Bowel prep was adequate. The patient's estimated blood loss was minimal (<5 mL). The procedure was not difficult. The patient tolerated the procedure well. There were no apparent adverse events. Patient provided education and educated on specific discharge instructions. Patient educated on medications given during the procedure and new medications for discharge. Patient verbalizes understanding of discharge education. Patient stable and awaiting transport for discharge. Events Procedure Events Event Event Time ENDO SCOPE IN TIME 11/03/2024 1:13 PM ENDO CECUM REACHED 11/03/2024 1:16 PM ENDO SCOPE OUT TIME 11/03/2024 1:23 PM Specimens ID Type Source Tests Collected by Time 1 : Descending colon polyp via cold snare Tissue Large Intestine, Left/Descending Colon PATHOLOGY TISSUE REQUEST Cheo Emerson MD 11/03/2024 1320 Anesthesia Event Time In Patient In - Proc. Room 01:09 PM Patient Out - Proc. Room 01:24 PM us Cheo Emerson MD ENDOSCOPY PROCEDURE ORDERABL ES Final Result * DX BONE DENSITY AXIAL SKELETON (08/22/2021 8:37 AM EDT) Anatomical Region Laterality Modality Dexa Scan 08/22/2021 Narrative 08/23/2021 8:52 AM EDT Indication: The patient is a post-menopausal female under age 65 with clinical risk factors for an osteoporotic fracture that requires a bone density assessment. Study was performed on [place]. Bone Density: Region BMD T-score Z-score AP [...] this report. Reported by: Thania Rose PA-C, CCD on 08/23/2021 8:50:00 AM. Francisco Mims MD IMG DEXA ORDERABLES Fin al Result from Last 3 Months or Most Recently Relevant to Health Maintenance Insurance [employer] MEDICARE SUPPLEMENT MEDICARE [place] PART A AND B MEDICARE IN PART A AND B [employer] MEDICARE SUPPLEMENT MEDICARE [place] PART A AND B MEDICARE IN PART A AND B Care Teams Supervisor Riveting Relationship Specialty Start Date End Date Dejuan Camarillo DO [address] [place] [address] PCP - General Family Medicine 09/01/15
--- OUTSIDE RECORDS SUMMARY | 2025-07-26 10:57 | XMS_ITS | Encounter Summary ---
Author Organization [place] [address] Care Team Providers Care Partner Name Role Phone Dejuan Camarillo DO Primary Care Provider [phone] Encounter Details Date Type Department Care Team (Late st Contact Info) Description 07/05/2025 Orders Only [facility] [address] [place] [phone] Francisco Mims MD [address] [place] [address] Iron deficiency anemia, unspecified iron deficiency anemia [...] 8:13 AM EDT Marilin Hernandez CCMA * Does this person have serious difficulty walking or climbing stairs? Answer Date of Assessment Author No 07/04/2025 8:13 AM EDT Marilin Hernandez CCMA * Does this person have difficulty [...] Description 12/05/2025 9:00 AM EST Office [place] [facility] [place] [facility] [address] [phone] Nataliia Yung, AUTOMATIC CLIPPER [address] [place] [address] documented as of this encounter Goals Goal Patient Goal Type Associated Problems Recent Progress Patient-Stated? Author Maintain a healthy diet, exercise regularly and maintain an ideal body weight General No [facility], [facility] documented as of this encounter Results * (ABNORMAL) IRON+TIBC (07/04/2025 9:25 AM EDT) [facility] Signature Iron 23(L) 30 - 160 mcg/dL 07/05/2025 11:44 AM EDT [facility] Transferrin 370(H) 200 - 360 mg/dL 07/05/2025 11:44 AM EDT [facility] Transferrin Saturation 4(L) 20 - 50 % 07/05/2025 11:44 AM EDT [facility] TIBC 518(H) 250 - 400 mcg/dL 07/05/2025 11:44 AM EDT [facility] Blood VENOUS BLOOD / Unknown Venipuncture / Unknown 07/04/2025 9:25 AM EDT 07/04/2025 9:25 AM EDT Francisco Mims MD CHEMISTRY ORDERABLES Fi nal Result Performing Organization Address [facility] Co de Phone Number [facility] [address] [facility] , [place] [address] * (ABNORMAL) FERRITIN (07/04/2025 9:25 AM EDT) Ferritin 11(L) 30 - 150 ng/mL 07/05/2025 11:44 AM EDT [facility] Comment:The lower threshold of 30 is not statistically defined, nor internally validated. The threshold has been updated to more closely reflect a physiologic basis. Philomena Eisenberg, et al. Physiologically based serum ferritin thresholds for iron deficiency in children and non- women: a [place] National Health and Nutrition Examination Surveys (NHANES) serial cross-sectional study. Lancet Haematol 2021;8:e572-82. Blood VENOUS BLOOD / Unknown Venipuncture / Unknown 07/04/2025 9:25 AM EDT 07/04/2025 9:25 AM EDT Narrative [facility] - 07/05/2025 11:44 AM EDT Ingestion of yaya doses of biotin (>5 mg/day) taken within 8 hours of drawing blood sample can interfere with this immunoassay test. Francisco Mims MD CHEMISTRY ORDERABLES Fi nal Result Performing Organization Address [facility]/ZIP Co de Phone Number [facility] [address] [facility] , [place] [address] documented in this encounter Visit Diagnoses Diagnosis Iron deficiency anemia, unspecified iron deficiency anemia type- Primary documented in this encounter Additional Health Concerns Assessment Noted Time A fall risk assessment has been complete d for the patient 07/04/2025 8:14 AM EDT documented as of this encounter Care Teams Partner Relationship Specialty Start Date End Date Dejuan Camarillo DO [address] [place] [address] PCP - General Family Medicine 09/01/15 documented as of this encounter
--- OUTSIDE RECORDS SUMMARY | 2025-07-26 10:57 | XMS_ITS | Encounter Summary ---
Author Organization [facility] Address [address] [place] [address] Care Team Providers Care Internet Marketing Coordinator Name Role Phone Dejuan Camarillo DO Primary Care Provider [phone] Encounter Details Date Type Department Care Team (Late st Contact Info) Description 02/10/2019 Abstract Ren[facility] Unit [address] [place] [address] Heavenly Jarquin, RN [address] [place] [address] Social History Tobacco Use Types Packs/Day Years Used Date Smoking Tobacco: Never Assessed Comments Unknown Sex and Gender Information Value Date Recorded Sex Assigned at Not on file Legal Sex Female 2:09 PM EST Gender Identity Not on file Sexual Orientation Not on file documented as of this encounter Plan of Treatment Not on file documented as of this encounter Visit Diagnoses Not on filedocumented in this encounter Care Teams Internet Marketing Coordinator Relationship Specialty Start Date End Date Dejuan Camarillo DO [address] [place] [address] PCP - General Family Medicine 12/16/18 documented as of this encounter
--- OUTSIDE RECORDS SUMMARY | 2025-07-26 10:57 | XMS_ITS | Clinical Summary ---
Author Organization [facility] Address [address] [place] [address] Care Team Providers Care Financial Investigator Name Role Phone Dejuan Camarillo DO Primary Care Provider Social History Tobacco Use Types Packs/Day Years Used Date Smoking Tobacco: Never Assessed Comments Unknown Sex and Gender Information Value Date Recorded Sex Assigned at Not on file Legal Sex Female 2:09 PM EST Gender Identity Not on file Sexual Orientation Not on file Last Filed Vital Signs Vital Sign Reading Time Taken Comments Blood Pressure - - Pulse - - Temperature - - Respiratory Rate - - Oxygen Saturation - - Inhaled Oxygen Concentration - - Weight 63.5 kg (140 lb) 12/16/2018 2:16 PM EST Height 154.9 cm (5' 1 ) 12/16/2018 2:16 PM EST Body Mass Index 26.45 12/16/2018 2:16 PM EST Plan of Treatment Not on file Care Teams Financial Investigator Relationship Specialty Start Date End Date Dejuan Camarillo DO [address] [place] [phone] PCP - General Family Medicine 12/16/18
--- OUTSIDE RECORDS SUMMARY | 2025-07-26 10:57 | XMS_ITS | Clinical Summary ---
Author Organization [facility] Address [address] [facility], [address] [place] [address] Care Team Providers Care Scoop Operator Name Role Phone Dejuan Camarillo DO Primary Care Provider Allergies No known active allergies Medications clonazePAM (KLONOPIN) 1 MG tablet TAKE 1 TABLET BY MOUTH ONCE DAILY 2 06/22/2019 Active diclofenac (VOLTAREN) 50 MG EC tablet TAKE 1 TABLET BY MOUTH THREE TIMES DAILY WITH MEALS 2 07/19/2019 Active escitalopram (LEXAPRO) 20 MG tablet TAKE 1 TABLET BY MOUTH ONCE DAILY 1 08/12/2019 Active topiramate (TOPAMAX) 100 MG tablet TAKE 1 TABLET BY MOUTH NIGHTLY 1 08/12/2019 Active Active Problems Problem Noted Date Diagnosed Date Neck sprain and strain 02/12/2013 Contusion of lower leg 04/28/2012 Acquired trigger finger 01/27/2012 Insomnia 09/30/2011 Restless legs syndrome 09/30/2011 Rash and other nonspecific skin eruption 011 Acute sinusitis 08/14/2011 Medial epicondylitis of elbow 05/31/2011 Other specified episodic mood disorder 9 Acute upper respiratory infection 01/09/2009 Displacement of cervical int ervertebral disc without myelopathy 07/21/2008 Pain in joint, shoulder region 07/21/2008 Cervicalgia 03/29/2008 Polyneuropathy in other diseases classified else where 03/29/2008 Social History Tobacco Use Types Packs/Day Years Used Date Smoking Tobacco: Never Smokeless Tobacco: Never Alcohol Use Standard Drinks/Week Comments Never 0 (1 standard drink = 0.6 oz pur e alcohol) AUDIT-C Answer Date Recorded Frequency of Alcohol Consumption Never 08/17/2019 Average Number of Drinks Not on file 019 Frequency of Binge Drinking Not on file 07/26 Comments Unknown Sex and Gender Information Value Date Recorded Sex Assigned at Not on file Legal Sex Female 10:56 AM EDT Gender Identity Not on file Sexual Orientation Not on file Last Filed Vital Signs Vital Sign Reading Time Taken Comments Blood Pressure 119/77 10/26/2019 9:34 AM EST Pulse 76 10/26/2019 9:34 AM EST Temperature - - Respiratory Rate - - Oxygen Saturation - - Inhaled Oxygen Concentration - - Weight 65.8 kg (145 lb 1 oz) 10/26/2019 9:34 AM EST Height 154.9 cm (5' 0.98 ) 10/26/2019 9:34 AM ES T Body Mass Index 27.42 10/26/2019 9:34 AM EST Plan of Treatment Not on file Insurance . [address] [employer] Care Teams Scoop Operator Relationship Specialty Start Date End Date Dejuan Camarillo DO PCP - General 08/17/19
--- OUTSIDE RECORDS SUMMARY | 2025-07-26 10:57 | XMS_ITS | Encounter Summary ---
Author Organization [place] [address] Care Team Providers Care Balancer Name Role Phone Dejuan Camarillo DO Primary Care Provider [phone] Encounter Details Date Type Department Care Team (Late st Contact Info) Description 07/06/2025 Results Follow-Up [facility] [address] [place] [phone] Francisco Mims MD [address] [place] [address] CBC WITH DIFF, COMPREHENSIVE METABOLIC PANEL, LIPID SCREEN, Additional followed-up results: 4 Social History Tobacco Use Types Packs/Day Years [...] Description 12/05/2025 9:00 AM EST Office Visit [facility] [place] [address] [phone] Nataliia Yung, MACHINE SETTER [employer] [address] [place] [address] documented as of this encounter [...] documented as of this encounter Care Teams Balancer Relationship Specialty Start Date End Date Dejuan Camarillo DO [facility] [place] [address] PCP - General Family Medicine 09/01/15 documented as of this encounter
--- OUTSIDE RECORDS SUMMARY | 2025-07-26 10:57 | XMS_ITS | Encounter Summary ---
Author Organization [facility] Address [address] [place] [address] Care Team Providers Care Trailer Truck Driver Name Role Phone Dejuan Camarillo DO Primary Care Provider [phone] Encounter Details Date Type Department Care Team (Late st Contact Info) Description 12/29/2019 Abstract Renal Unit [address] [place] [address] Heavenly Jarquin, RN [address] [place] [address] Social History Tobacco Use Types Packs/Day Years [...] on filedocumented in this encounter Care Teams Trailer Truck Driver Relationship Specialty Start Date End Date Dejuan Camarillo DO [address] [place] [address] PCP - General Family Medicine 12/16/18 documented as of this encounter
== END 2025-07-25 23:59 ==
LOC: LAB.DROPOF 07-26 10:18
PROVIDERS: PCP Student in an Organized Health Care Education/Training Program; Visit Provider Student in an Organized Health Care Education/Training Program
DX: N39.0 Urinary tract infection, site not specified (principal)
CPT/HCPCS: 87086; 87088